=== PATIENT | male | born 1995 | race African-American/Black ===

== ENCOUNTER 2016-08-31 19:27 | Emergency (ER) | payer OTHER ==
[~2016-08-31] VITALS: Ht 165.1 cm; Wt 74.9 kg
[~2016-08-31 19:27] MED LIST: ACET-62 PO; AMOX500C2 PO; HYDR-4246 PO; IBUP-1724 PO; NO ROUTINE MEDS
--- OUTSIDE RECORDS SUMMARY | 2016-08-31 19:30 | XMS REPORT | Continuity of Care Document ---
Author Author [facility] Organization [facility] Address Unknown Phone Unavailable Allergies Active Description Code Type Severity Reaction Onset Reported/Identified Relationship to Patient Clinical Status Yes No Known Allergies No Known Allergies Drug Allergy Unknown N/A 12/04/2014 Medications Problems Procedures Results Encounters ACCT No. Visit Date/Time Discharge Status Pt. Type Provider Facility Loc./Unit Complaint [id number] 12/04/2014 16:01:00 2014 16:54:00 DIS Emergency Brionna CALLAWAY, [facility] E.ED [id number] 10/21/2014 23:40:00 Document Registration
--- OUTSIDE RECORDS SUMMARY | 2016-08-31 19:30 | XMS REPORT | Continuity of Care Document ---
Author Author [facility] Organization [facility] Address Unknown Phone Unavailable Support Name Relationship Address Phone CHIDI WINN MD Caregiver [address] [place] [address] Unavailable CHARISMAFAUSTO WALLISHeidi Next Of Kin [address] [place] [address] Insurance Providers Guarantor Lonnie Dobson Iii Address [address] [place] [address] Email DENIED/NO TO [facility] Payer [facility] Policy Number [id number] Subscriber's Name BronsonKyLonnie Relationship 19 Child Group Number [id number] Chief Complaint and Reason for Visit Chief Complaint Toothache Reason for Visit Toothache Problems Active Problems Medical Problem Onset Date Status Toothache Unknown Acute Medications Current Home Medications Medication Dose Units Route Directions Days Qty Instructions Start Date Acetaminophen 500 Mg Tablet 2 Tab Oral Every 8 Hours as needed for Pain 03/20/16 Amoxicillin 500 Mg Capsule 1 Cap Oral Every 8 Hours 10 Days 30 Capsule 03/20/16 Hydrocodone/Acetaminophen ([place] 5-325 Tablet) 5-325 Tablet 1 Tab Oral Every Six Hours for Pain 15 Tablet 03/20/16 Ibuprofen 200 Mg Tablet 2 Tab Oral Every 4 Hours as needed for Pain 03/20/16 No Routine Meds 03/20/16 Social History Social History Problem Response Recorded Date/Time Onset Date Status Chewing Tobacco Status No 03/20/2016 9:40pm Not Applicable Not Applicable Hx Substance Use Y MARIJUANA 03/20/2016 9:40pm Not Applicable Not Applicable Hx Alcohol Use No 03/20/2016 9:40pm Not Applicable Not Applicable Query Response Start Date Stop Date Smoking Status Current every day smoker Hospital Discharge Instructions No hospital discharge instructions. Plan of Care Discharge Date 03/20/16 10:36pm Disposition 01 DISCHARGED HOME, SELF-CARE Condition at Discharge Stable Instructions/Education Provided DI for Dental Pain Prescriptions See Medication Section Referrals [facility] Address: FOLLOW UP SOON POSSIBLE Note: Functional Status No functional status results. Allergies, Adverse Reactions, Alerts Allergen Type Severity Reaction Status Last Updated No Known Drug Allergies Allergy Unknown Active 03/20/16 Immunizations No immunization records. Vital Signs Acute Vital Signs Vital Response Date/Time Pulse Rate (adult) 64 bpm (60 - 100) 03/20/2016 10:36pm Respiratory Rate 16 breaths/min (10 - 20) 03/20/2016 10:36pm O2 Sat by Pulse Oximetry 98 % (90 - 100) 03/20/2016 10:36pm Blood Pressure 119/68 mm Hg 03/20/2016 10:36pm Height (Feet) 5 feet 03/20/2016 9:30pm Height (Inches) 4.00 inches 03/20/2016 9:30pm Weight (Kilograms) 75.400 kg 03/20/2016 9:30pm Body Mass Index (BMI) 28.0 03/20/2016 9:30pm Results No known relevant diagnostic tests, laboratory data and/or discharge summary. Procedures No known history of procedures. Encounters Encounter Location Arrival/Admit Date Discharge/Depart Date Attending Provider Departed Emergency Room [facility] 03/20/16 9:24pm 03/20/16 10: 36pm CHIDI WINN MD Recent Diagnosis
--- OUTSIDE RECORDS SUMMARY | 2016-08-31 19:30 | XMS REPORT | Referral Summary ---
Author Author [facility] Organization [facility] Address Unknown Phone Unavailable Care Team Providers Care Director Corporate Sales Name Role Phone No PCP, States Primary Care Physician [phone] Encounter [facility] [id number] Date(s): 04/27/16 - 04/27/16 [facility] [address] [place], [place] [address] Discharge Diagnosis: Dental abscess Discharge Diagnosis: Pain due to dental caries Discharge Disposition: 01-Home or Self Care Attending Physician: Russell Kenny DO Admitting Physician: Russell Kenny DO Vital Signs Most recent to 1 oldest [Reference Range]: Temperature Oral 36.6 degC [35.8-37.3 degC] (04/27/16 3:51 PM) Peripheral Pulse 62 bpm Rate [60-100 bpm] (04/27/16 4:43 PM) Respiratory Rate 16 br/min [14-20 br/min] (04/27/16 4:43 PM) Blood Pressure 127/96 mmHg [90-140/60-90 mmHg] (04/27/16 4:43 PM) SpO2 100 % (04/27/16 4:43 PM) Problem List No Known Problems Allergies, Adverse Reactions, Alerts No Known Medication Allergies Medications clindamycin 150 mg oral capsule 450 mg 3 caps, Oral, q8hr, X 10 days, # 90 caps, 0 Refill(s) Start Date: 04/27/16 Stop Date: 05/07/16 Status: Ordered ibuprofen 800 mg oral tablet 800 mg 1 tabs, Oral, TID, as needed for pain, X 5 days, # 15 tabs, 0 Refill(s) Start Date: 04/27/16 Stop Date: 05/02/16 Status: Ordered [place] 5 mg-325 mg oral tablet 1 tabs, Oral, q6hr, as needed for pain, X 2 days, # 8 tabs, 0 Refill(s) Start Date: 04/27/16 Stop Date: 04/29/16 Status: Ordered Results No data available for this section Immunizations No data available for this section Procedures No data available for this section Social History Social History Type Response Smoking Status Current every day smoker; Type: Cigarettes; Tobacco use per day: 1 Pack Assessment and Plan No data available for this section
[2016-08-31 19:39] VITALS: TEMP 98.4; Ht 165.1 cm; Wt 74.9 kg
--- NOTE | 2016-08-31 19:57 | ERPDOC ---
Departure Disposition Decision Date: August 31, 2016 Disposition Decision Time: 20:22 (VALERIE AGUILERA APRN) Disposition: 01 DISCHARGED HOME, SELF-CARE Impression Impression (VALERIE AGUILERA APRN) Impression: Primary Impression: Wrist sprain Encounter type: initial encounter Laterality: right Qualified Codes: S63.501A - Unspecified sprain of right wrist, initial encounter Severity: Mild (VALERIE AGUILERA APRN) Condition: Improved Seen By: Mid-level only (VALERIE AGUILERA APRN) Patient Instructions: Wrist Sprain (ED) Problems/Meds/Labs Reviewed?: Yes Medications reviewed and manag: Yes (VALERIE AGUILERA APRN) Additional Instructions: Your wrist and hand x-rays did not show a fracture. Take 800 mg of ibuprofen every 8 hours as needed with food for pain. Ice wrist and elevate to reduce swelling and inflammation for next 24 hours. Avoid activity that may exacerbate pain or reinjure your wrist/hand. Follow treatment plan. Follow up care ordered?: Yes Mental Status: Alert, Oriented (VALERIE AGUILERA APRN) HPI - Upper Extremity General Chief Complaint: Upper Extremity Injury Stated Complaint: POSS BROKEN RT HAND Time Seen by MD: 19:57 Source: patient (VALERIE AGUILERA APRN) Time Seen by MD: 19:50 (AUGUSTFRANKLYN DO) HPI - Upper Extremity Initial Comments 21 YO M presents to ED with report of right wrist and hand pain. Patient says that he fell forward on to outstretch hand yesterday when skateboarding. Painful to flex wrist or make a fist. Patient says that his right shoulder has been "a little sore" but has had not problem with movement. Denies striking head , neck/back pain or other injuries. Took ibuprofen after injury but has not taken anything for pain today. Pain/Severity Scale: Now: 6/10 Pain/Injury Location: right wrist, right 3rd finger Method of Injury/Context: fell Quality: aching (VALERIE AGUILERA APRN) Allergies: Coded Allergies: No Known Drug Allergies (Verified Allergy, Unknown, 08/31/16) Past History Past Medical History Metabolic: DENIES: diabetes ENMT: other Cardiac: DENIES: angina (season ALLERGIES GI Bleeding or) Respiratory: DENIES: COPD, asthma GI: DENIES: ulcers Male: DENIES: renal insufficiency Neurological: DENIES: seizures Musculoskeletal: DENIES: rheumatoid arthritis Psychological: DENIES: depression (VALERIE AGUILERA YARN POLISHING MACHINE OPERATOR) Surgical History General: other (myringotomy and nasal surgery) (VALERIE AGUILERA YARN POLISHING MACHINE OPERATOR) Family History Family PMH: FOUND: other (noncontributory) (VALERIE AGUILERA APRN) Social History Substance Use Type: does not use Alcohol Intake: occasionally Marital Status: Single Sexuality: female partner Household Members: family (VALERIE AGUILERA APRN) Review of Systems Constitutional Constitutional: DENIES: chills, dizziness, fever, weakness (VALERIE AGUILERA YARN POLISHING MACHINE OPERATOR) Eyes General: DENIES: erythema, exudate Lids/Accessories: DENIES: erythema, swelling (VALERIE AGUILERA YARN POLISHING MACHINE OPERATOR) ENMT Ears: DENIES: pain Hearing: DENIES: hearing loss Sinuses: DENIES: congestion, rhinorrhea Mouth/Throat: DENIES: sore throat (VALERIE AGUILERA YARN POLISHING MACHINE OPERATOR) Cardiovascular Cardiac: DENIES: chest pain, murmur Rhythm/Rate: DENIES: palpitations (VALERIE AGUILERA YARN POLISHING MACHINE OPERATOR) Pulmonary Respiratory: DENIES: cough, dyspnea (VALERIE AGUILERA YARN POLISHING MACHINE OPERATOR) GI Upper Abdomen: DENIES: nausea, pain, vomiting Lower Abdomen: DENIES: diarrhea, pain (NAY AGUILERAS A YARN POLISHING MACHINE OPERATOR) General: DENIES: dysuria, pain (NAY AGUILERAS A YARN POLISHING MACHINE OPERATOR) Musculoskeletal General: joint pain, pain, tenderness (NAY AGUILERAS A YARN POLISHING MACHINE OPERATOR) Integumentary Skin: DENIES: color change, itching, rash (NAY AGUILERAS Shaquille YARN POLISHING MACHINE OPERATOR) Neurological General: DENIES: ataxia, change in strength, numbness, paralysis/paresis, weakness (NAY AGUILERAS Shaquille YARN POLISHING MACHINE OPERATOR) Psychiatric Psychiatric: DENIES: anxiety, depression, nervousness (NAY AGUILERAS Shaquille YARN POLISHING MACHINE OPERATOR) Physical Exam General General Nourishment: well nourished, well developed, adult General Body Habitus: well groomed (VALERIE AGUILERA YARN POLISHING MACHINE OPERATOR) Vitals and Pain First Documented Vital Signs Date Time Temp Pulse Resp B/P Pulse Ox O2 Delivery O2 Flow Rate FiO2 08/31/16 19:39 98.4 79 12 120/71 99 Room Air (AUGUST,FRANKLYN M DO) Vitals and Pain Weight: Kilograms: 74.900 Height (feet): 5 Height (inches): 5.00 Triage Pain Scale: (VALERIE AGUILERA YARN POLISHING MACHINE OPERATOR) Eyes (brief) Eyes Brief: found: EOMI (NAY AGUILERAS Shaquille YARN POLISHING MACHINE OPERATOR) ENMT (brief) ENMT Brief: NOT FOUND: nasal exudate, nasal swelling (NAY AGUILERAS A YARN POLISHING MACHINE OPERATOR) Neck (brief) Neck: FOUND: trachea midline (NAY AGUILERAS A YARN POLISHING MACHINE OPERATOR) Respiratory (brief) Respiratory: FOUND: clear all quesada, equal bilaterally (NAY AGUILERAS A YARN POLISHING MACHINE OPERATOR) Cardiovascular (brief) Cardiac: FOUND: regular rate, regular rhythm (NAY AGUILERAS A YARN POLISHING MACHINE OPERATOR) Musculoskeletal Joint : Side: Right Joint: shoulder, elbow Joint Findings: FOUND: no abnormalities, NOT FOUND: ROM limited, deformity, discoloration, instability, pain, swelling (VALERIE AGUILERA YARN POLISHING MACHINE OPERATOR) [place] Hand/Forearm Hand/Forearm : Upper Extremity: Right Forearm: pronation intact, supination intact, NOT FOUND: deformity, ecchymosis, erythema, swelling Wrist: ROM intact, tender (medial and distal ulna/radius), NOT FOUND: deformity, ecchymosis, erythema, snuff box tenderness, swelling, thenar eminence tender Hand: swelling (over mid hand on dorsum), tender (TTP over 3rd metacarpal), NOT FOUND: deformity, ecchymosis, erythema Fingers: cap refill <2sec ea digit, soft touch intact, NOT FOUND: deformity , ecchymosis, erythema, impaired abduction, impaired adduction, impaired extension, impaired flexion, impaired grasp, laceration, nail avulsion, rotational deformity, subungual hematoma, swelling, tender Ulnar Pulse: 2+ (NAY AGUILERAS A YARN POLISHING MACHINE OPERATOR) Integumentary (brief) Integumentary Brief: FOUND: dry, pink, warm (NAY AGUILERAS A YARN POLISHING MACHINE OPERATOR) Neurologic (brief) Neurological Brief: FOUND: motor-no gross deficits, sensory-no gross deficits ( NAY AGUILERAS A YARN POLISHING MACHINE OPERATOR) Psychiatric (brief) Psychiatric Brief: FOUND: alert, normal affect, oriented (NAY AGUILERAS A YARN POLISHING MACHINE OPERATOR ) Differential Diagnoses Considering: Contusion, Dislocation, Fracture, Sprain, Strain, Vascular Compromise (NAY AGUILERAS A YARN POLISHING MACHINE OPERATOR) Progress Results/Orders Orders Procedure Category Date Status Time Wrist Right 3-4 Views RAD 08/31/16 Resulted Hand Right 3 View RAD 5/21/17 Resulted Ibuprofen (Motrin) PHA 08/31/16 Complete 20:15 Premade Splint EDM 08/31/16 Transmitted 20:30 (FRANKLYN PEPE DO) Medications Current ED Medications Ibuprofen (Motrin) 800 mg O ONCE PO Last administered on 08/31/16t 20:25; Start 08/31/16 at 20:15; Stop 08/31/16 at 20:16; Status DC (FRANKLYN PEPE DO) Progress Progress Patient is neurovascularly intact I discussed x-rays and treatment plan with patient. Patient place in Velcro wrist splint. Patient verbalized understanding of treatment plan, follow up with PCP as needed and return precautions. (VALERIE AGUILERA APRN) Xray Xray #1: Xray: Wrist R Interpretation: Normal (Dr. Pepe) Xray #2: Xray: Hand R (no fracture (Dr. Pepe)) (VALERIE AGUILERA APRN) VALERIE AGUILERA APRN August 31, 2016 19:57 AUGUSTFRANKLYN DO September 02, 2016 06:12
--- NOTE | 2016-08-31 20:00 | NUR ---
PROVIDER John AGUILERA APRN AT BEDSIDE FOR EXAM.
--- NOTE | 2016-08-31 20:12 | NUR ---
XRAY PORTABLE XRAY AT BEDSIDE.
[2016-08-31] MEDS ORDERED: IBUPROFEN 200 MG TABLET PO ONE (20:15)
--- OUTSIDE RECORDS SUMMARY | 2016-08-31 20:15 | XMS REPORT | Continuity of Care Document ---
Author Author [facility] Organization [facility] Address Unknown Phone Unavailable Allergies Active Description Code Type Severity Reaction Onset Reported/Identified Relationship to Patient Clinical Status Yes No Known Allergies No Known Allergies Drug Allergy Unknown N/A 12/04/2014 Medications Problems Procedures Results Encounters ACCT No. Visit Date/Time Discharge Status Pt. Type Provider Facility Loc./Unit Complaint [id number] 12/04/2014 16:01:00 2014 16:54:00 DIS Emergency Brionna CALLAWAY, [facility] E.ED [id number] 10/21/2014 23:40:00 Document Registration
[2016-08-31 20:37] VITALS: BP 125/74; PULSE 81; RESP 16; O2SAT 97
--- NOTE | 2016-08-31 20:37 | NUR ---
DISCHARGE WRITTEN INSTRUCTIONS REVIEWED AND SENT WITH PT. PT VERBALIZES UNDERSTANDING OF DI, DENIES QUESTIONS. PT AMBULATES OUT OF ER WITH STEADY GAIT ACCOMP BY MOTHER AT THIS TIME.
--- NOTE | 2016-08-31 20:46 | DI ---
Indication: ITS.REASON: Fall yesterday with pain over hand, worse 3rd metacarpal PROCEDURE: HAND RIGHT 3 VIEW: Encounter: Initial Comparison: None Findings: There is no acute fracture, dislocation or malalignment identified. Impression: No acute osseous abnormality. .
--- NOTE | 2016-08-31 20:48 | DI ---
Indication: ITS.REASON: Fall with pain over distal wrist PROCEDURE: WRIST RIGHT 3-4 VIEWS: Encounter: Initial Comparison: None Findings: There is no acute fracture, dislocation or malalignment identified. Impression: No acute osseous abnormality. .
== END 2016-08-31 20:37 | disposition home or self-care (01) ==
LOC: ED 19:27
DX: S63.501A Unspecified sprain of right wrist, initial encounter (principal); V00.131A Fall from skateboard, initial encounter; Y93.51 Activity, roller skating (inline) and skateboarding; Y92.89 Other specified places as the place of occurrence of the external cause; Y99.8 Other external cause status